=== PATIENT | male | born 1965 | race Caucasian/White ===

== ENCOUNTER 2019-03-09 10:47 | Day surgery (SDC) | payer OTHER ==
[2019-03-09] MEDS ORDERED: LIDOCAINE 1% (MPF) 30 ML INJ (11:52)
[2019-03-09] MEDS ORDERED: LACTATED RINGER'S 1,000 ML IV (12:00)
[2019-03-09] MEDS ORDERED: CEFAZOLIN 1 GM INJ (12:19)
[2019-03-09] MEDS ORDERED: LIDOCAINE 2% (SDV) 5 ML INJ (12:19)
[2019-03-09] MEDS ORDERED: MIDAZOLAM 1 MG/ML 2 ML INJ (12:19)
[2019-03-09] MEDS ORDERED: FENTAnyl 50 MCG/ML VIAL (12:19)
[2019-03-09] MEDS ORDERED: PROPOFOL 20 ML (12:19)
[2019-03-09] MEDS ORDERED: POLYMYXIN/BACITRACIN 1L IRRIG (13:26)
[2019-03-09] MEDS ORDERED: BUPIVACAINE 0.5% (SDV) 30 ML INJ (13:26)
[2019-03-09] MEDS ORDERED: ONDANSETRON 4 MG INJ IV (13:30)
[2019-03-09] MEDS ORDERED: FENTAnyl 50 MCG/ML VIAL IV ×3 (13:30)
[2019-03-09] MEDS ORDERED: OXYCODONE/ACETAMINOPHEN (5/325) TAB PO ×2 (13:30)
[2019-03-09] MEDS ORDERED: MEPERIDINE 25 MG INJ IV (13:30)
[2019-03-09] MEDS: BUPIVACAINE 0.5% (SDV) 30 ML INJ (14:03)
[2019-03-09] MEDS ORDERED: KETOROLAC 30 MG INJ (14:13)
== END 2019-03-09 16:10 | disposition home or self-care (01) ==
LOC: SDS 10:47
DX: G56.01 Carpal tunnel syndrome, right upper limb (principal); M65.331 Trigger finger, right middle finger; M65.341 Trigger finger, right ring finger
CPT/HCPCS: 26055